=== PATIENT | male | born 1950 | race Caucasian/White ===

== ENCOUNTER 2017-06-20 09:03 | Inpatient (IN) | payer OTHER ==
[~2017-06-20] VITALS: Ht 177.8 cm; Wt 97.1 kg
[2017-06-20] VITALS (9 sets, daily range): BP systolic 124–180; BP diastolic 70–98
--- NOTE | ~2017-06-20 | ST ---
[place], [place] EXERCISE STRESS TEST REPORT NAME: ALICIA SERRANO UNIT #: [id number] ROOM: 404 DOCTOR: KALIN ISLAS MD BIRTHDATE: [birth year] DOS: 06/21/2017 INDICATIONS: History of coronary artery disease, central chest pressure, ICD in place. PROCEDURE: The patient's resting electrocardiogram showed AV pacing with fusion beats and premature ventricular contractions. With the infusion, no significant changes occurred. He did feel a burning sensation in his throat. He was given an infusion of regadenoson 0.4 mg intravenously, followed by a saline flush. 40 seconds later, he was given radionuclide intravenously. IMPRESSION: 1. Well tolerated infusion of regadenoson. 2. Atrial and ventricular paced rhythm. 3. Radionuclide injected. Please see the separate imaging report for further details of the patient's stress test results. KALIN ISLAS MD CM:STRESS:EXERCISE STRESS TEST REPORT [id number] KALIN ISLAS MD
--- NOTE | ~2017-06-20 | PR ---
[place], [place] PROGRESS NOTE NAME: ALICIA SERRANO [facility] #: [id number] UNIT #: [id number] ROOM: 404 DOCTOR: KALIN ISLAS MD BIRTHDATE: [birth year] DOS: 06/21/2017 CARDIOLOGY PROGRESS NOTE SUBJECTIVE: The patient was seen in the Cardiology Department today, 06/21/2017, prior to a pharmacologic stress test. He is a 66-year-old man who does have a history of coronary artery disease with previous myocardial infarction complicated by recurrent ventricular tachycardia. He has had ventricular tachycardia ablations performed and does have a defibrillator in place. He presented to the hospital on this occasion with substernal nonradiating chest pain. In the hospital, he has not had any elevation in troponin levels and his symptoms have resolved. Since it has been a while since his last cardiac assessment, he was scheduled for a pharmacologic stress test and echocardiogram today. I supervised both studies. His pharmacologic stress test showed no evidence for electrocardiographic changes with the infusion. Perfusion images showed an inferoseptal myocardial infarction without any ongoing ischemia. The ejection fraction was 46%. No transient cavity dilation was seen. The echocardiogram showed an inferoseptal area of akinesis. The other manzano thickened with mild hypokinesis. Estimated ejection fraction was between 45% and 50% and he did have stage 2 diastolic dysfunction. He had aortic sclerosis, but no significant abnormality of valve function. PHYSICAL EXAMINATION: VITAL SIGNS: Today, his pulse is 73 and regular, blood pressure was 154/84. He was afebrile. He weighs 97.1 kilograms with a body mass index of 30.7. HEENT: Normocephalic, atraumatic. NECK: Supple. He has no jugular distention. Carotids are full. LUNGS: Respirations are unlabored. His chest is clear to auscultation and percussion. HEART: Has a regular rhythm with a fourth heart sound, but no third heart sound. ABDOMEN: Benign. EXTREMITIES: Showed no edema. After the patient's stress test, his device was interrogated. It is functioning normally. He does have occasional episodes of SVT and wide complex tachycardia consistent with nonsustained ventricular tachycardia; however, he has not had either of these in the last month and all that were recorded were brief. IMPRESSION: 1. Coronary artery disease. 2. Status post inferoseptal myocardial infarction with mild ischemic cardiomyopathy. 3. History of ventricular tachycardia, status post ventricular tachycardia ablation with placement of a [facility] [facility] ICD. 4. Hospitalization, June 2017, with atypical chest pain, myocardial infarction ruled out. 5. Echocardiogram, 06/21/2017, moderately dilated left ventricle with left ventricular hypertrophy present, mild global left ventricular hypokinesis, akinesis of the inferior septum, ejection fraction between 45% and 50%, stage 2 [place], [place] PROGRESS NOTE NAME: ALICIA SERRANO UNIT #: [id number] ROOM: 404 DOCTOR: KALIN ISLAS MD BIRTHDATE: [birth year] diastolic dysfunction, aortic sclerosis without stenosis or any other significant abnormality of valve function. 6. Pharmacologic myocardial perfusion study utilizing regadenoson on 06/21/2017 demonstrated a fixed inferoseptal defect at the basal and mid left ventricular levels. No reversible ischemia was seen. Estimated ejection fraction is 46%. No transient cavity dilation. Abnormal, but fairly low risk examination. The patient may be discharged to home from a cardiac standpoint to continue his current medications. We would like to see him in the office in about 3 months. In the meantime, he will have an evaluation with his wood polisher at the [facility] in [place]; subsequently he plans on transferring all of his care to [facility] Cardiology and [facility] Electrophysiology. We thank Dr. Martinez for asking our advice regarding the patient's care. KALIN ISLAS MD CM:PNTRANS 20 KALIN ISLAS MD 06/22/1735 interface
--- NOTE | ~2017-06-20 | WRIGHTHP ---
[place], [place] PATIENT HISTORY AND PHYSICAL EXAM [id number] UN[facility] #: [id number] ROOM: [place] [address] DOCTOR: MARISOL URIBE MD BIRTHDATE: [birth year] DOS: 06/20/2017 HISTORY OF PRESENT ILLNESS: The patient is a 66-year-old gentleman with a past medical history of: 1. Coronary artery disease of the napaimute vessels and stent to the right coronary artery in 2005 and acute CA in 2007, with [facility], internal cardiac defibrillator placement, ablation therapy for ventricular tachycardia in 2008 and 2010 and coronary artery bypass grafts in 2012. 2. Benign essential hypertension. 3. Hypothyroidism. 4. Chronic lower back pains. 5. Chronic primary insomnia. 6. Mixed hyperlipidemia. The patient presented to the Emergency Department with significant headaches, elevated blood pressures and some chest pain. The patient had taken sublingual nitroglycerin and chest pain resolved. The patient says he also had a syncopal episode about a week earlier at his home. After treatment in the Emergency Department, his blood pressure had normalized and he was admitted to the ICU. The patient has been scheduled for cardiac stress test and an echocardiogram in the morning for symptoms of shortness of breath, diaphoresis and chest pains. REVIEW OF SYSTEMS: LUNGS: No increasing shortness breath or wheezing. GASTROINTESTINAL: No nausea, vomiting, diarrhea, constipation. CARDIOVASCULAR SYSTEM: The patient had chest pains prior to coming to the hospital. SOCIAL HISTORY: . Denies smoking cigarettes, alcohol and drug abuse. FAMILY HISTORY: Noncontributory. HOME MEDICATIONS: Plavix, aspirin, hydralazine, ____, metoprolol, Percocet. ALLERGIES: Known allergies to SULFA and STATINS. PHYSICAL EXAMINATION: GENERAL: Alert and oriented x 3, in no visible distress, moderately obese. HEENT AND NECK: Extraocular movements are intact. Sclerae are anicteric. Oral mucosa is moist and clean. No obvious facial weakness. Neck is supple without any lymphadenopathy. No thyromegaly. No JVD. No carotid arterial bruits. LUNGS: Clear to auscultation. No wheezing. No rhonchi. CARDIOVASCULAR SYSTEM: Heart rate is regular in rate and rhythm. S1 and S2 normally audible. No significant murmur or any other abnormal cardiac sounds. ABDOMEN: Soft, nontender. No obvious organomegaly. Bowel sounds are present. No obvious herniation. EXTREMITIES: Without significant cyanosis or edema. Warm to touch. CENTRAL NERVOUS SYSTEM: Alert and oriented x 3. Cranial nerves II-XII are intact. Speech is normal. The patient is able to move all extremities. Normal muscle strength. Deep tendon reflexes are equal on both sides. Plantars were [place], [place] PATIENT HISTORY AND PHYSICAL EXAM NAME: ALICIA SERRANO UNIT #: [id number] ROOM: [place] [address] DOCTOR: MARISOL URIBE MD BIRTHDATE: [birth year] downgoing. IMPRESSION AND PLAN: 1. The patient with chest pains from uncertain etiology. Cardiac enzymes have been negative so far. The patient is being monitored closely in the ICU and now transfer him to [facility]. The patient is scheduled for cardiac stress test and echocardiogram by the stores clerk tomorrow. Dr. Fajardo, the stores clerk is following him. 2. Previous history of coronary artery disease of the napaimute vessels and coronary artery bypass graft. 3. Benign essential hypertension. The patient treated with metoprolol. Blood pressures are controlled. 4. Hypothyroidism, treated with levothyroxine. 5. Chronic lower back pains, for which he takes Percocet as needed and I started him on Tylenol 6. Chronic primary insomnia, treated with trazodone. MARISOL URIBE MD CM:HISPHYS:PATIENT HISTORY AND PHYSICAL EXAMINATION [id number] MARISOL URIBE MD 06/20/17 1651 interface
--- NOTE | ~2017-06-20 | PR ---
[place], [place] PROGRESS NOTE NAME: ALICIA SERRANO UNIT #: [id number] ROOM: 404 DOCTOR: MARISOL URIBE MD BIRTHDATE: [birth year] DOS: 06/20/2017 SUBJECTIVE: The patient is going for cardiac stress test this morning to be performed by laboratory chemist. Cardiac enzymes were negative. PHYSICAL EXAMINATION: VITAL SIGNS: Blood pressure 152/88, heart rate 76 beats per minute, breathing 16 times per minute, temperature 98.5 degrees Fahrenheit. GENERAL APPEARANCE: The patient is alert and oriented x 3, in no visible distress. HEENT AND NECK: Exam within normal limits. CARDIOVASCULAR SYSTEM: Heart rate is regular in rate and rhythm. S1 and S2 normally audible. LUNGS: Clear to auscultation. ABDOMEN: Soft, nontender. No obvious organomegaly. Bowel sounds are present. EXTREMITIES: Without significant cyanosis or edema. IMPRESSION: 1. The patient with chest pains from uncertain etiology, undergoing cardiac stress testing by Cardiology this morning. He has been asymptomatic and cardiac enzymes have been negative. 2. Previous history of coronary artery disease of bois [place]te vessels and coronary artery bypass graft. 3. Benign essential hypertension. Blood pressure is being monitored and treated. 4. Hypothyroidism, treated with supplements. The patient on levothyroxine. 5. Chronic lower back pain, treated and controlled with Percocet as needed. 6. Chronic primary insomnia, treated with trazodone. MARISOL URIBE MD CM:PNTRANS [id number] MARISOL URIBE MD 06/21/17 1517 interface
[2017-06-20 09:27] LABS: BASO # 0.1 10*3/uL (0.0-0.1); BASO % 1.1 % (0.0-1.0); EOS # 0.1 10*3/uL (0.0-0.4); EOS % 2.9 % (1.0-4.0); HEMOGLOBIN 12.7 g/dl (14.0-18.0); LYMPH # 0.7 10*3/uL (1.3-4.4); LYMPH % 14.5 % (27.0-41.0); MEAN CELL VOLUME 89.6 fl (80.0-94.0); MEAN CORPUSCULAR HGB CONC 33.4 g/dl (33.0-37.0); MEAN PLATELET VOLUME 9.3 fl (9.6-12.3); MONO # 0.4 10*3/uL (0.1-1.0); MONO % 8.2 % (3.0-9.0); NEUT # 3.5 10*3/uL (2.3-7.9); NEUT % 73.1 % (47.0-73.0); PLATELET COUNT AUTOMATED 172 10*3/uL (130-400); RED BLOOD COUNT 4.24 10*6/uL (4.50-5.90); RED CELL DISTRI WIDTH 12.9 % (0-14.5); WHITE BLOOD COUNT 4.8 10*3/uL (4.8-10.8)
--- NOTE | 2017-06-20 09:35 | NUR ---
UPON ARRIVAL TO THE ED AT 0903 INITIAL BP WAS 180/98. ATROPINE GIVEN AT 0912 BP FOLLWING THAT WAS 170/89. NITRO PASTE 1 INCH GIVEN AT 0920, BP FOLLOWING THAT WAS 124/84. WILL CONTINUE TO MONITOR.
[2017-06-20 09:36] LABS: INTERNATIONAL NORM RATIO 0.9 (2.0-3.5)
[2017-06-20 09:45] LABS: ALBUMIN 3.7 gm/dl (3.1-4.5); ALKALINE PHOSPHATASE 83 U/L (45-117); BUN 16 mg/dl (7-24); CHLORIDE 108 mmol/L (98-107); CREATININE 1.32 mg/dL (0.70-1.30); MAGNESIUM 1.9 mg/dL (1.5-2.1); POTASSIUM 4.7 mmol/L (3.5-5.1); SGOT/AST 47 IU/L (3-35); SGPT/ALT 29 U/L (12-78); SODIUM 140 mmol/L (136-145); TOTAL PROTEIN 6.1 gm/dL (6.4-8.2); TROPONIN I 0.018 ng/ml (<0.045)
[2017-06-20] MEDS ORDERED: IMDUR SA60 MG PO (10:02)
[2017-06-20] MEDS ORDERED: NAPROXEN D/R500 MG PO (10:03)
[2017-06-20] MEDS ORDERED: MEXILETINE HCL150 MG PO (10:04)
[2017-06-20] MEDS ORDERED: LOPRESSOR50 M1 PO (10:05)
[2017-06-20] MEDS ORDERED: Synthroid,Levo25 MCG PO (10:06)
[2017-06-20] MEDS ORDERED: Clopidogrel75 MG PO (10:07)
[2017-06-20] MEDS ORDERED: NORCO 10-325 T1 EACH PO (10:08)
[2017-06-20] MEDS ORDERED: TRAZODONE150 MG PO (10:10)
[2017-06-20] MEDS ORDERED: NEURONTIN300 MG PO (10:10)
[2017-06-20] MEDS ORDERED: NITROSTAT0.4 MG SL (10:12)
--- NOTE | 2017-06-20 10:44 | NUR ---
A 66, admitted to [facility], under the services of Dr. RONY COCHRAN,MARISOL Aguilar with a diagnosis of CHEST PAIN. Chief complaint is [place] CHEST PAIN THAT STARTED AT HOME AND HE TOOK MULTIPLE NITRO-SL. PAIN FREE ON ADMISSION. Patient arrived via stretcher from ER. Monitor applied. Initial assessment completed. Vital signs taken and recorded. DR WILSON SAW THE PATIENT IN ER & ORDERS RECEIVED. DR. RONY COCHRAN,MARISOL Aguilar notified of admission to the unit. Orders received. See assessment for past medical history, medications and allergies. Patient and/or family oriented to unit. [facility] visitation policy reviewed. Clothing/patient valuable form completed. ANAIS GUERRA
[2017-06-20] MEDS ORDERED: PERCOCET 5-3251 EACH PO (10:51)
--- NOTE | 2017-06-20 11:18 | NUR ---
dR. Isaacs WAS NOTIFIED OF PT ARRIVAL TO UNIT.
--- NOTE | 2017-06-20 13:30 | NUR ---
Medicated for c/o chronic back pain. .Pneumovax given. Spouse in to visit. [facility] recieved and placed to chart.
--- NOTE | 2017-06-20 17:35 | NUR ---
Dr. Martinez in to [facility], Order for transfer to [facility] [place] recieved. TO 404 via bed. Spouse present on transfer. Report to Stacey CUNNINGHAM.
--- NOTE | 2017-06-20 20:00 | NUR ---
PT. IS RESTING COMFORTABLY IN BED AT THIS TIME. RESPIRATIONS ARE EASY AND REGULAR WITH NO DISTRESS SEEN AT THIS TIME, CALL LIGHT IS IN REACH. SEE SHIFT ASSESSMENT.
--- NOTE | 2017-06-20 20:29 | NUR ---
PRN PERCOCET GIVEN PER PT. REQUEST FOR BACK PAIN, RATING A 6/10. WILL CONTINUE TO MONITOR.
--- NOTE | 2017-06-20 21:00 | NUR ---
PRN PERCOCET, EFFECTIVE PER PT. RESPIRATIONS ARE EASY AND REGULAR, CALL LIGHT IS WITHIN REACH. WILL CONTINUE TO MONITOR.
--- NOTE | 2017-06-20 22:55 | NUR ---
DR. URIBE CONTACTED FOR PT. COMPLAINT OF HEARTBURN/INDEGESTION. SEE NEW ORDERS.
[2017-06-21] VITALS: BP 128/60
--- NOTE | 2017-06-21 01:36 | NUR ---
24 HR chart check completed.
--- NOTE | 2017-06-21 02:06 | NUR ---
PRN PERCOCET GIVEN PER PT. REQUEST FOR BACK PAIN, RATING AN 6/10. WILL CONTINUE TO MONITOR.
--- NOTE | 2017-06-21 02:30 | NUR ---
PRN PAIN MEDICATION SEEMS TO BE EFFECTIVE. PT. IS RESTING COMFORTABLY WITH RESPIRATIONS EASY AND REGULAR, CALL LIGHT WITHIN REACH.
[2017-06-21 08:00] VITALS: BP 152/88
--- NOTE | 2017-06-21 08:30 | NUR ---
Consulting Systems Engineer in to talk to patient. Patient states lives at HOME with HIS . There are 4 steps in the home. Physician: DR URIBE [facility]: NONE Patient's level of ADLs: INDEPENDENT Patient has working utilities: YES DME: NONE Follow-up physician's appointment after d/c: PREFERS TO MAKE HIS OWN APPT Does patient want to access PORTAL?: Discharge plan HOME. MINNA MATHEW
--- NOTE | 2017-06-21 08:42 | NUR ---
PATIENT MEDICATED WITH PO NORCO FOR PAIN 8/10 IN HIS BACK
--- NOTE | 2017-06-21 09:42 | NUR ---
PATIENT STATES MEDICATION EFFECTIVE
--- NOTE | 2017-06-21 10:52 | NUR ---
INFORMED CONSENT SIGNED FOR LEXISCAN STRESS TEST WITH DR. ISLAS. RESTING EKG PACED/BIGEMINY. HR 69, BP 160/90. PULSE OX 100% LUNGS CLEAR. COMPLETED ONE MINUTE OF LEXISCAN PROTOCOL RECEIVING LEXISCAN 0.4MG OVER 10 SECONDS. NO ARRHYTHMIAS OR ST CHANGES NOTED. PT C/O BURNING IN NECK. LAST RECOVERY HR 85, BP 158/90. WATING NUCLEAR SCANNING IN STABLE CONDITION.
--- NOTE | 2017-06-21 11:36 | NUR ---
PACE MAKER INTERIGATION REPORT FAXED TO DR. ORTEGA PER DR. ISLAS'S REQUEST.
[2017-06-21 12:00] VITALS: BP 135/85
--- NOTE | 2017-06-21 14:54 | NUR ---
PATIENT MEDICATED WITH PO PERCOCET FOR PAIN IN HIS BACK RATED 7/10
--- NOTE | 2017-06-21 15:51 | NUR ---
Shift chart check completed.
--- NOTE | 2017-06-21 15:53 | NUR ---
PATIENT STATES MEDICATION EFFECTIVE
[2017-06-21 16:00] VITALS: BP 154/84
--- NOTE | 2017-06-21 17:02 | NUR ---
WENT OVER D/C INSTRUCTIONS. REMOVED IV WITH CATHETER INTACT AND BLEEDING CONTROLLED. PATIENT VERBALIZED UNDERSTANDING. REMOVED MONITOR. PATIENT AMBULATED TO EXIT. PATIENT IS D/C HOME.
== END 2017-06-21 17:02 | disposition home or self-care (01) | DRG 313 ==
LOC: ED 09:03 → 4E 09:41 → ICCU 09:41 → EDHOLD 09:41 → ICCU 09:47 → 4E 17:27
PROVIDERS: Emergency Medicine; ADMIT Internal Medicine
PROC: 4A02XM4 Measurement of Cardiac Total Activity, External Approach (ICD-10-PCS; principal; 2017-06-20)
DX: R07.89 Other chest pain (principal); I25.2 Old myocardial infarction; I10 Essential (primary) hypertension; I25.10 Atherosclerotic heart disease of native coronary artery without angina pectoris; E03.9 Hypothyroidism, unspecified; I25.5 Ischemic cardiomyopathy; G89.29 Other chronic pain; M54.5 Low back pain; E78.2 Mixed hyperlipidemia; F51.01 Primary insomnia; Z95.810 Presence of automatic (implantable) cardiac defibrillator; Z88.2 Allergy status to sulfonamides; Z88.8 Allergy status to other drugs, medicaments and biological substances; Z79.899 Other long term (current) drug therapy; Z98.61 Coronary angioplasty status; Z79.82 Long term (current) use of aspirin; Z95.1 Presence of aortocoronary bypass graft

== ENCOUNTER 2017-07-25 21:18 | Emergency (ER) | payer OTHER ==
[~2017-07-25] VITALS: Ht 177.8 cm; Wt 104.3 kg
[~2017-07-25 21:18] MED LIST: Clopidogrel75 MG PO; IMDUR SA60 MG PO; LOPRESSOR50 M1 PO; MEXILETINE HCL150 MG PO; NAPROXEN D/R500 MG PO; NEURONTIN300 MG PO; NITROSTAT0.4 MG SL; NORCO 10-325 T1 EACH PO; PERCOCET 5-3251 EACH PO; Synthroid,Levo25 MCG PO; TRAZODONE150 MG PO
[2017-07-26] MEDS ORDERED: ZOFRAN ODT4 MG SL (22:10)
[2017-07-26] MEDS ORDERED: Motrin,Rufen800 MG PO (22:10)
== END 2017-07-25 23:57 | disposition home or self-care (01) ==
LOC: ED 21:18
DX: S39.012A Strain of muscle, fascia and tendon of lower back, initial encounter (principal); Z88.2 Allergy status to sulfonamides; Z88.8 Allergy status to other drugs, medicaments and biological substances; Z79.899 Other long term (current) drug therapy; X50.0XXA Overexertion from strenuous movement or load, initial encounter; Y93.89 Activity, other specified; Y92.89 Other specified places as the place of occurrence of the external cause; Y99.8 Other external cause status

== ENCOUNTER 2017-07-26 18:16 | Emergency (ER) | payer OTHER ==
[~2017-07-26] VITALS: Ht 177.8 cm; Wt 97.1 kg
[2017-07-26 18:58] LABS: BILIRUBIN NEGATIVE (NEGATIVE); BLOOD 3+ (NEGATIVE); CLARITY SL CLOUDY (CLEAR); COLOR YELLOW (YELLOW); GLUCOSE NEGATIVE (NEGATIVE); KETONE NEGATIVE (NEGATIVE); LEUKO ESTERASE NEGATIVE (NEGATIVE); NITRITE NEGATIVE (NEGATIVE); PH 5.5 (5.0-9.0); UROBILINOGEN 0.2 E.U./dl (0.2-1.0)
[2017-07-26 19:14] LABS: BACTERIA TRACE; EPITHELIAL CELLS 0-2; RBC 51-100 rbc/hpf (0-2); WBC 0-2 wbc/hpf (0-5)
[2017-07-26 19:19] LABS: BASO # 0.1 10*3/uL (0.0-0.1); BASO % 1.3 % (0.0-1.0); EOS # 0.2 10*3/uL (0.0-0.4); EOS % 3.7 % (1.0-4.0); HEMATOCRIT 36.6 % (42.0-52.0); HEMOGLOBIN 12.5 g/dl (14.0-18.0); LYMPH % 19.1 % (27.0-41.0); MEAN CELL VOLUME 88.4 fl (80.0-94.0); MEAN CORPUSCULAR HGB 30.2 pg (27.0-31.0); MEAN CORPUSCULAR HGB CONC 34.2 g/dl (33.0-37.0); MEAN PLATELET VOLUME 9.4 fl (9.6-12.3); MONO # 0.5 10*3/uL (0.1-1.0); MONO % 8.8 % (3.0-9.0); NEUT # 3.6 10*3/uL (2.3-7.9); NEUT % 66.7 % (47.0-73.0); PLATELET COUNT AUTOMATED 195 10*3/uL (130-400); RED BLOOD COUNT 4.14 10*6/uL (4.50-5.90); RED CELL DISTRI WIDTH 12.8 % (0-14.5); WHITE BLOOD COUNT 5.4 10*3/uL (4.8-10.8)
[2017-07-26 19:39] LABS: ALBUMIN 3.8 gm/dl (3.1-4.5); ALKALINE PHOSPHATASE 84 U/L (45-117); BUN 16 mg/dl (7-24); CHLORIDE 106 mmol/L (98-107); CREATININE 1.47 mg/dL (0.70-1.30); LIPASE 372 U/L (73-393); POTASSIUM 4.7 mmol/L (3.5-5.1); SGOT/AST 24 IU/L (3-35); SGPT/ALT 23 U/L (12-78); SODIUM 139 mmol/L (136-145); TOTAL PROTEIN 6.5 gm/dL (6.4-8.2)
[2017-07-26] MEDS ORDERED: Motrin,Rufen800 MG PO (22:10)
[2017-07-26] MEDS ORDERED: ZOFRAN ODT4 MG SL (22:10)
== END 2017-07-26 22:12 | disposition home or self-care (01) ==
LOC: ED 18:16
PROVIDERS: Physician Assistant
DX: N20.0 Calculus of kidney (principal); Z79.899 Other long term (current) drug therapy; Z88.2 Allergy status to sulfonamides; Z88.8 Allergy status to other drugs, medicaments and biological substances

== ENCOUNTER 2017-11-18 12:19 | Emergency (ER) | payer OTHER ==
[~2017-11-18] VITALS: Ht 180.3 cm; Wt 68.0 kg
[~2017-11-18 12:19] MED LIST changes: +Motrin,Rufen800 MG PO; +ZOFRAN ODT4 MG SL
[2017-11-18] MEDS ORDERED: DELTASONE20 M1 PO (16:19)
== END 2017-11-18 15:35 | disposition home or self-care (01) ==
LOC: ED 12:19
DX: S16.1XXA Strain of muscle, fascia and tendon at neck level, initial encounter (principal); M54.5 Low back pain; Z88.2 Allergy status to sulfonamides; Z88.8 Allergy status to other drugs, medicaments and biological substances; Z79.899 Other long term (current) drug therapy; W01.0XXA Fall on same level from slipping, tripping and stumbling without subsequent striking against object, initial encounter; Y93.89 Activity, other specified; Y92.89 Other specified places as the place of occurrence of the external cause; Y99.8 Other external cause status

== ENCOUNTER → 2023-05-31 | Outpatient (CLI) | payer OTHER ==
[~2023-05-31] MED LIST changes: +DELTASONE20 M1 PO
== END | disposition home or self-care (01) ==
LOC: RESCLI 07:53
PROVIDERS: ATTEND Internal Medicine
DX: I48.91 Unspecified atrial fibrillation (principal); I25.10 Atherosclerotic heart disease of native coronary artery without angina pectoris; I47.20 Ventricular tachycardia, unspecified; I13.2 Hypertensive heart and chronic kidney disease with heart failure and with stage 5 chronic kidney disease, or end stage renal disease; N18.9 Chronic kidney disease, unspecified; I50.20 Unspecified systolic (congestive) heart failure; J44.9 Chronic obstructive pulmonary disease, unspecified; K29.70 Gastritis, unspecified, without bleeding; G47.00 Insomnia, unspecified; E03.9 Hypothyroidism, unspecified; F10.90 Alcohol use, unspecified, uncomplicated; M79.7 Fibromyalgia; Z88.2 Allergy status to sulfonamides; Z88.8 Allergy status to other drugs, medicaments and biological substances; Z82.49 Family history of ischemic heart disease and other diseases of the circulatory system; Z82.3 Family history of stroke; Z95.0 Presence of cardiac pacemaker; Z79.899 Other long term (current) drug therapy

== ENCOUNTER 2023-08-27 11:39 | Emergency (ER) | payer OTHER ==
[~2023-08-27] VITALS: Ht 180.3 cm; Wt 98.0 kg
[2023-08-27 13:11] LABS: BASO # 0.1 10*3/uL (0.0-0.1); EOS # 0.2 10*3/uL (0.0-0.4); EOS % 3.4 % (1.0-4.0); HEMATOCRIT 39.6 % (42.0-52.0); LYMPH % 15.9 % (27.0-41.0); MEAN CELL VOLUME 86.3 fl (80.0-94.0); MEAN CORPUSCULAR HGB 27.5 pg (27.0-31.0); MEAN CORPUSCULAR HGB CONC 31.8 g/dl (33.0-37.0); MEAN PLATELET VOLUME 9.9 fl (9.6-12.3); MONO # 0.7 10*3/uL (0.1-1.0); NEUT # 4.2 10*3/uL (2.3-7.9); NEUT % 67.5 % (47.0-73.0); PLATELET COUNT AUTOMATED 243 10*3/uL (130-400); RED BLOOD COUNT 4.59 10*6/uL (4.50-5.90); RED CELL DISTRI WIDTH 13.5 % (0-14.5); WHITE BLOOD COUNT 6.2 10*3/uL (4.8-10.8)
[2023-08-27 13:35] LABS: TOTAL PROTEIN 6.1 gm/dL (6.0-8.0)
== END 2023-08-27 14:05 | disposition home or self-care (01) ==
LOC: ED 11:39
PROVIDERS: Emergency Medicine
DX: I95.9 Hypotension, unspecified (principal); R42 Dizziness and giddiness; I25.2 Old myocardial infarction; E78.00 Pure hypercholesterolemia, unspecified; Z87.442 Personal history of urinary calculi; Z88.2 Allergy status to sulfonamides; Z98.890 Other specified postprocedural states

== ENCOUNTER 2023-09-25 18:36 | Emergency (ER) | payer OTHER ==
[2023-09-25 20:54] LABS: BASO # 0.1 10*3/uL (0.0-0.1); BASO % 0.9 % (0.0-1.0); EOS # 0.2 10*3/uL (0.0-0.4); EOS % 3.1 % (1.0-4.0); HEMATOCRIT 44.3 % (42.0-52.0); LYMPH # 1.2 10*3/uL (1.3-4.4); LYMPH % 16.7 % (27.0-41.0); MEAN CELL VOLUME 86.5 fl (80.0-94.0); MEAN CORPUSCULAR HGB 27.3 pg (27.0-31.0); MEAN CORPUSCULAR HGB CONC 31.6 g/dl (33.0-37.0); MEAN PLATELET VOLUME 9.5 fl (9.6-12.3); MONO # 0.7 10*3/uL (0.1-1.0); MONO % 8.7 % (3.0-9.0); NEUT # 5.2 10*3/uL (2.3-7.9); NEUT % 70.5 % (47.0-73.0); PLATELET COUNT AUTOMATED 305 10*3/uL (130-400); RED BLOOD COUNT 5.12 10*6/uL (4.50-5.90); RED CELL DISTRI WIDTH 13.7 % (0-14.5); WHITE BLOOD COUNT 7.4 10*3/uL (4.8-10.8)
[2023-09-25 20:58] LABS: BILIRUBIN Negative (Negative); BLOOD Negative (Negative); CLARITY Clear (Clear); COLOR Yellow (Yellow); GLUCOSE 3+ (Negative); KETONE Trace (Negative); LEUKO ESTERASE Negative (Negative); NITRITE Negative (Negative); UROBILINOGEN 0.2 E.U./dl (0.0-1.0)
[2023-09-25 21:10] LABS: ACT PARTIAL THROMBO TIME 26.5 SECONDS (20.0-32.1)
[2023-09-25 21:12] LABS: MUCOUS 2+
[2023-09-25 21:18] LABS: ALKALINE PHOSPHATASE 105 U/L (46-116); BUN 17 mg/dl (9-23); CHLORIDE 108 mmol/L (98-107); LIPASE 74 U/L (12-53); POTASSIUM 4.2 mmol/L (3.4-5.1); SGPT/ALT 29 U/L (5-49); TOTAL PROTEIN 6.7 gm/dL (6.0-8.0)
[2023-09-26] MEDS ORDERED: MIRALAX POWDER17 G1 PO (00:26)
== END 2023-09-26 01:40 | disposition home or self-care (01) ==
LOC: ED 18:36
PROVIDERS: Internal Medicine
DX: K59.00 Constipation, unspecified (principal); Z88.2 Allergy status to sulfonamides; Z88.8 Allergy status to other drugs, medicaments and biological substances; Z79.899 Other long term (current) drug therapy; Z87.442 Personal history of urinary calculi; R11.2 Nausea with vomiting, unspecified

== ENCOUNTER → 2024-11-09 | Outpatient (CLI) | payer MEDICARE ==
[~2024-11-09] MED LIST changes: +MIRALAX POWDER17 G1 PO
== END | disposition home or self-care (01) ==
LOC: RESCLI 08:54
PROVIDERS: ATTEND Internal Medicine
DX: I11.0 Hypertensive heart disease with heart failure (principal); I50.20 Unspecified systolic (congestive) heart failure; I47.20 Ventricular tachycardia, unspecified; G47.00 Insomnia, unspecified; M79.7 Fibromyalgia; I48.91 Unspecified atrial fibrillation; C85.90 Non-Hodgkin lymphoma, unspecified, unspecified site; I25.10 Atherosclerotic heart disease of native coronary artery without angina pectoris; Z79.899 Other long term (current) drug therapy; Z88.8 Allergy status to other drugs, medicaments and biological substances; Z88.2 Allergy status to sulfonamides; Z98.890 Other specified postprocedural states